=== PATIENT | female | born 1975 | race Caucasian/White ===

== ENCOUNTER 2017-05-07 04:04 | Observation (INO) | payer OTHER ==
[2017-04-30 17:27] LABS: HEMOGLOBIN 11.5 g/dL (12.0-16.0)
[2017-04-30 17:31] LABS: HEMATOCRIT 34.9 % (36.0-48.0)
[2017-04-30 17:39] LABS: CALCIUM, SERUM 8.6 MG/DL (8.5-10.4); CHLORIDE, SERUM 110 MMOL/L (96-112); CO2 (CARBON DIOXIDE) 24 MMOL/L (24-34); CREATININE 1.52 MG/DL (0.55-1.02); GFR AFRICAN AMERICAN 48 ML/MIN (>=60); GFR NON AFRICAN AMERICAN 42 ML/MIN (>=60); POTASSIUM, SERUM 3.8 MMOL/L (3.5-5.3); SODIUM, SERUM 141 MMOL/L (135-148)
[2017-04-30 17:41] LABS: BUN (BLOOD UREA NITROGEN) 19 MG/DL (6-23); GLUCOSE, SERUM 189 MG/DL (60-99)
--- NOTE | ~2017-05-07 | OP ---
Record Of Operation [facility] [address] [place]. [address] NAME: WALI GANDARA : 73 STATUS : ADM IN [facility]#: [id number] AGE: 42 ADM/REG DATE : 05/07/17 MR#: [id number] REPORT SERV DATE: 05/08/17 DICTATED BY: MIHAI CHAN II DATE: 05/08/17 REPORT STATUS : Draft TRANSCRIBED BY: MODJoce DATE: 05/08/17 DATE OF PROCEDURE: 05/07/2017 PREOPERATIVE DIAGNOSES: 1. Bilateral upper extremity radiculopathy. 2. C6-7 herniated nucleus pulposus, large. 3. C7-T1 herniated nucleus pulposus, moderate. 4. 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 POSTOPERATIVE DIAGNOSES: 1. Bilateral upper extremity radiculopathy. 2. C6-7 herniated nucleus pulposus, large. 3. C7-T1 herniated nucleus pulposus, moderate. 4. 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 PROCEDURE: 1. C6-7 anterior interbody arthrodesis. 2. Application of prosthetic device, C6-7. 3. Anterior instrumentation, C6-7. 4. Use of bone marrow aspirate and allograft substitute. 5. Use of the microscope. SURGEON: Mihai Chan M.D. FLUIDS: Approximately 1200 mL LR. ESTIMATED BLOOD LOSS: 20 mL. DRAINS: One drain. COMPLICATIONS: None. ANTIBIOTIC: Preoperatively. PREOPERATIVE HISTORY: This is a friendly 42-year-old female suffering with discogenic neck pain with significant radiation into the periscapular region and down the arms. We discussed the pros and cons of surgery. Initially, I felt the C7-T1 space was approachable from the anterior perspective. However, I felt the C6-7 level was likely her more symptomatic level based upon the MRI. DESCRIPTION OF PROCEDURE: After informed consent was obtained, the patient was brought to the operating room at her request and general anesthesia achieved. She was placed in the supine position and the neck and iliac crest prepped and draped in a sterile fashion. A 5 mL of bone marrow were aspirated from the iliac crest followed by a right-sided approach. The retropharyngeal approach was performed and the C6-7 level identified. At this point, however, it became quite obvious that accessing the C7-T1 space was going to be treating the Record Of Operation [facility] [address] [place]. [address] NAME: WALI GANDARA : 73 STATUS : ADM IN PAT#: [id number] AGE: 42 ADM/REG DATE : 05/07/17 MR#: [id number] REPORT SERV DATE: 05/08/17 DICTATED BY: MIHAI CHAN II DATE: 05/08/17 REPORT STATUS : Draft TRANSCRIBED BY: MAGGY DATE: 05/08/17 difficult because of the clavicle simply. I overall felt that it was potentially accessible; however, we would have had to have retracted the soft tissues excessively in my opinion, and overall, I did not believe it was worth the risk of damage. I felt that if the patient did not achieve significant arm relief with C6-7 alone, we would then need to approach C7-T1 space from a posterior perspective. At this point, the subperiosteal exposure was completed at C6-7. The lean six sigma black belt retractors were placed underneath the longus colli muscles. The ET tube cuff was deflated and reinflated followed by placement of the Jarales pins. Gentle distraction was performed at C6 7. The knife was used and the annulotomy performed. The endplates were now prepared with the curettes and the high-speed bur. Please note, this was done under microscopic visualization. At this point, the endplates were made to be parallel with the high-speed bur. The posterior vertebral body osteophytes were now removed. The posterior longitudinal ligament was also removed and the large HNP removed from the foramen on the left. On the right, there was significant osteophytosis compressing the nerve root. The prosthetic device was now trialed and chosen and placed at C6-7. This contained allograft substitute and bone marrow aspirate. The Jarales pins were then removed and the anterior fixation device placed. Please note, this was a separate plate and screw construct. Two screws were then placed into C6 and C7. Multiplanar imaging confirmed acceptable placement of the implants. The deep drain was placed secondary to mild cancellous bone bleeding. The standard closure was performed, and the patient then extubated and transferred to PACU in stable condition. I then discussed the case with her father and explained the proceedings and we will keep her overnight for observation. LAURA/MAGGY Mihai Chan II, M.D. / [id number] CC: Mihai Chan II, M.D.
[~2017-05-07 04:04] MED LIST: ALLEGRA30 MG PO; GLUCOPHAGE1000 MG PO; LEXAPRO10 PO; MCZ125 PO; NAP500 PO; NORCO1 TA2 PO; PROAIR HFA INH; SINGULAIR1 PO; TOPAMAX100 PO; TRILIPIX135 MG PO; X5 PO
[2017-05-08] MEDS ORDERED: V2 PO (07:41)
[2017-05-08] MEDS ORDERED: PERCOCET 10/3251 TAB PO (07:42)
== END 2017-05-08 15:15 | disposition home or self-care (01) ==
LOC: SDC 04:04 → SDC/OF 08:45 → 3SO 09:02
PROVIDERS: Orthopaedic Surgery
PROC: 07DR3ZZ Extraction of Iliac Bone Marrow, Percutaneous Approach (ICD-10-PCS; 2017-05-07)
PROC: 0RG10A0 Fusion of Cervical Vertebral Joint with Interbody Fusion Device, Anterior Approach, Anterior Column, Open Approach (ICD-10-PCS; principal; 2017-05-07 05:45)
PROC: 0RB30ZZ Excision of Cervical Vertebral Disc, Open Approach (ICD-10-PCS; 2017-05-07 05:45)
DX: M50.123 Cervical disc disorder at C6-C7 level with radiculopathy (principal); M50.13 Cervical disc disorder with radiculopathy, cervicothoracic region; M43.22 Fusion of spine, cervical region; M48.02 Spinal stenosis, cervical region; J45.909 Unspecified asthma, uncomplicated; F41.9 Anxiety disorder, unspecified; F32.9 Major depressive disorder, single episode, unspecified; E11.9 Type 2 diabetes mellitus without complications; K21.9 Gastro-esophageal reflux disease without esophagitis; M19.90 Unspecified osteoarthritis, unspecified site; Z90.49 Acquired absence of other specified parts of digestive tract; Z98.890 Other specified postprocedural states
CPT/HCPCS: 80048; 82962; 84703; 85014; 85018; 87641; 88304; 88311; 96374; 96375; 96376; A9270-GY; C1713; G0378; J0690; J2250; J2405; J2710; J3010